=== PATIENT | male | born 1960 | race Caucasian/White ===

== ENCOUNTER 2020-12-26 02:31 | Inpatient (IN) | payer OTHER, SELFPAY ==
[2020-12-26] VITALS (77 sets, daily range): BP systolic 92–177; BP diastolic 70–116; PULSE 80–112; RESP 9–21; TEMP 36.7–36.8; O2SAT 94–100; BMI 31.6
--- NOTE | 2020-12-26 | ECHO_ITS ---
Patient Info Name: Hiro Mendoza Age: 60 years : 1960 Gender: Male Ht: 74 in Wt: 250 lbs BSA: 2.46 m2 HR: 101 bpm BP: 139 / 103 mmHg Heart Rhythm: Tachycardia Technical Quality: Good Exam Date: 12/26/2020 10:44 AM Exam Location: [facility] Patient Status: Inpatient Admit Date: 12/26/2020 Staff Ordering Physician: Gunner Veloz MD International Student Advisor: Anselmo Maher, LIONELCS, RT Attending Provider: Gunner Veloz MD Exam Type: CA echo doppler color flow Study Info Indications I21.02 - ST elevation (STEMI) myocardial infarction involving left anterior descending coronary artery Complete two-dimensional, color flow and Doppler transthoracic echocardiogram is performed with contrast to opacify the left ventricle and to improve the deliniation of the left ventricle endocardial borders. Strain analysis performed. Summary 1. Echo contrast was used. Normal LV size, mild LVH. LV dysfunction with segmental wall motion abnormality-severely hypokinetic to akinetic mid anterior wall, mid anterolateral, apical lateral and apical segments. LVEF about 50-55%. No definite thrombus is seen on images with echo contrast. Diastolic dysfunction is present. Valves are not well visualized, no significant MR. No significant aortic stenosis by Doppler. Unable to assess RVSP due to inadequate TR jet velocity. Small pericardial effusion, predominantly along RV valve, no echo findings suggestive of a definite tamponade. Left Ventricle Left ventricular chamber dimension is normal. Left ventricular systolic function is mildly reduced, estimated at 50-55%. There is mildly increased left ventricular wall thickness. E/e' 9.1 is abnormal. Right Ventricle Right ventricular chamber dimension is normal. Right ventricular systolic function is normal. Left Atria Left atrial chamber dimension is normal. Right Atria Right atrial chamber dimension is normal. Aortic Valve The aortic valve is not well visualized. There is no aortic valve stenosis. Pulmonic Valve The pulmonic valve is not well visualized. Mitral Valve The mitral valve has not well visualized. There is no mitral valve regurgitation. Tricuspid Valve The tricuspid valve leaflets are normal. There is mild tricuspid valve regurgitation. Pericardium/Pleural There is small pericardial effusion. Aorta The aortic root size at the sinus of Valsalva is mildly dilated. Left Ventricular Outflow Tract Name Value Normal LVOT 2D LVOT Diameter 2.0 cm LVOT Doppler LVOT Peak Gradient 4 mmHg LVOT Mean Gradient 2 mmHg LVOT VTI 17 cm LVOT VTI/AV VTI Ratio 0.8 LVOT Stroke Volume 54 ml LVOT CO 5.3 l/min LVOT CI 2.2 l/min/m2 Mitral Valve Name Value Normal MV Doppler
--- NOTE | ~2020-12-26 | XR_ITS ---
XR chest 1V portable DATE: 12/26/2020 02:57 INDICATION: Chest pain TECHNIQUE: Portable supine AP view on December 26, 2020 at 0259 hours COMPARISON: None FINDINGS: Heart size is within normal range. No pulmonary infiltrate or consolidation, pleural effusi on or pneumothorax is detected. Diffuse osteopenia. IMPRESSION: No active disease Reviewed, dictated and finalized at location A. MANAGER IMPRESSION: No active disease
--- NOTE | 2020-12-26 02:37 | ECG_ITS ---
Measurements Intervals [place] Rate: 98 P: 53 GA: 164 QRS: 1 QRSD: 81 T: 37 QT: 338 QTc: 433 Interpretive Statements SINUS RHYTHM POSSIBLE LEFT ATRIAL ENLARGEMENT SUBTLE ST ELEVATION IN ANTEROSEPTAL LEADS- CONSIDER ACUTE INJURY OR EARLY R REPOLARIZATION ABNORMALITY ABNORMAL ECG Electronically Signed On 12-26-2020 7:01:00 REGISTER CLERK by Taz Robins D.O.
--- NOTE | 2020-12-26 02:40 | ED.CHESTPAIN ---
HPI - Chest Pain General Chief Complaint: Chest Pain Stated Complaint: chest pain Time Seen by Provider: 12/26/20 02:37 History of Present Illness HPI narrative: Patient is a 60-year-old male who presents the ER with sudden onset chest pain beginning 30 minutes prior to arrival waking him from sleep. Central left-sided. Radiates down the arm. Associate with shortness of breath. No sweats or chills. Described as sharp pain. Does not go to his back. No change sensation. He does think it worsened with walking into the hospital. Has not had a heart attack previously. Related Data Home Medications Medication Instructions Recorded Confirmed No Home Medications 12/26/20 12/26/20 Allergies Allergy/AdvReac Type Severity Reaction Status Date / Time azithromycin AdvReac Vomiting Verified 12/26/20 02:41 Review of Systems Review of Systems: All systems reviewed & are unremarkable except as noted in HPI and below Constitutional: Constitutional: Denies chills, Denies fever(s) and Denies weakness ENT: Denies nasal congestion and Denies sore throat Cardiovascular: Cardiovascular: Reports chest pain, Denies rapid heart rate and Reports radiating jaw, neck or arm pain Respiratory: Respiratory: Denies chest congestion, Denies cough, Reports dyspnea and Denies wheezing Gastrointestinal: Gastrointestinal: Denies abdominal pain, Denies diarrhea, Denies nausea and Denies vomiting Musculoskeletal: Musculoskeletal: Denies back pain and Denies muscle cramps PMFSH Past Medical History Medical History (Updated 12/26/20 @ 06:22 by Zachariah Campos MD) Hyperlipidemia Surgical History Surgical History (Updated 12/26/20 @ 06:22 by Zachariah Campos MD) No history of previous surgery Family History Family History Father Hypertension Alzheimer's dementia Mother Hypertension Social History Social History (Updated 12/26/20 @ 06:22 by Zachariah Campos MD) Smoking status: Never smoker Exam Narrative: Exam Narrative: GENERAL: Anxious-appearing, well-nourished, and in moderate distress. HEAD: Normocephalic, atraumatic. EYES: PERRL and EOMI. CHEST: Clear to auscultation. No respiratory distress. HEART: Regular rate and rhythm. Normal peripheral pulses are equal. ABDOMEN: Soft, nontender, nondistended. EXTREMITIES: Normal range of motion. 1+ edema. SKIN: Warm, dry, no rash. NEURO: Alert and oriented x3. PSYCH: Normal mood and affect. Course Course Emergency Course: STEMI alert activated. I spoke with Dr. Veloz immediately after activation. Dr. Chowdhury has seen the EKG and feels there is some ST elevation in V1 but that V2 through V4 represents early repolarization abnormality and is not indicative of ischemia. Discussed some mild depressions in inferior leads. He feels this is likely related to patient's elevated blood pressures with a systolic in the 180s. Patient has been given nitroglycerin which causes blood pressure to drop to 92 systolic. He only had minor improvement of his pain. Repeat EKG is really unchanged. Dr. Veloz has also visualized this EKG. After reviewing the 2 EKGs and having this discussion STEMI was canceled at his request. He will accept the patient to his care and is planning on doing a cardiac catheterization at 7 AM. He would like the patient be on a heparin drip as well as a nitroglycerin drip. He would like the patient to receive oral aspirin and atorvastatin 80 mg. Patient has been made aware of this conversation and the treatment plan is verbalized understanding. We are titrating up the nitroglycerin and attempt to control his pain. He is also received IV morphine. First troponin level was negative. He has been accepted to the ICU by Dr. Alvarado. Vital Signs Vital signs: Vital Signs Temperature 98.2 F 12/26/20 02:34 Pulse Rate 100 12/26/20 02:34 Respiratory Rate 19 12/26/20 02:34 Blood Pressure 176/115 H
[2020-12-26] MEDS: ASPIRIN 81 MG CHEWABLE TABLET 324 MG PO (02:44)
--- NOTE | 2020-12-26 02:48 | PC.NURSE ---
0.4mg nitro given per EDP verbal order at 0240. Pt noted improvement to chest pain but started feeling lightheaded. BP dropped to 92/70. 1L NS started and other doses of nitro held at this time.
--- NOTE | 2020-12-26 02:49 | ECG_ITS ---
Measurements Intervals [place] Rate: 79 P: 42 PA: 154 QRS: 4 QRSD: 81 T: 14 QT: 372 QTc: 428 Interpretive Statements SINUS RHYTHM WITH SINUS ARRHYTHMIA SUBTLE ST ELEVATION IN ANTEROSEPTAL LEADS- CONSIDER ACUTE INJURY BASELINE WANDER- II, III, V4-V6 ABNORMAL ECG Electronically Signed On 12-26-2020 7:01:54 MOLD PRESS OPERATOR by Taz Robins D.O.
[2020-12-26 02:53] LABS: Basophils Absolute Auto 0.1 K/mm3 (0.0-0.1); Basophils Percent Auto 0.7 % (0.2-1.2); Eosinophils Absolute Auto 0.4 K/mm3 (0-0.3); Eosinophils Percent Auto 3.5 % (0-4.4); Hematocrit 49.7 % (42.0-52.0); Hemoglobin 16.6 g/dL (14.0-18.0); Immature Granulocyte Absolute 0.04 K/mm3 (0.00-0.031); Immature Granulocyte Percent A 0.3 % (0-0.5); Lymphocytes Absolute Auto 4.14 K/mm3 (0.9-3.2); Mean Corpuscular HGB Conc 33.4 g/dl (32-36); Mean Corpuscular Hemoglobin 29.7 pg (26-34); Mean Corpuscular Volume 89.1 fl (80-100); Mean Platelet Volume 10.1 fl (7.4-10.4); Monocytes Absolute Auto 1.3 K/mm3 (0.1-0.6); Monocytes Percent Auto 10.6 % (2.6-8.5); Neutrophils Absolute Auto 6.5 K/mm3 (1.3-6.7); Neutrophils Percent Auto 51.9 % (45.5-73.1); Platelet Count Result 321 k/mm3 (150-375); Red Blood Count 5.58 M/mm3 (4.6-6.20); Red Cell Distribution Width 13.1 % (11.5-14.5); White Blood Count 12.6 K/mm3 (4.5-10.0)
[2020-12-26] MEDS: MORPHINE SULFATE (*CRX) 2 MG/ML INJ IV PUSH (03:04)
[2020-12-26] MEDS: HEPARIN SODIUM 5,000 UNITS/ML VIAL 4000 UNITS IV PUSH (03:05)
[2020-12-26] MEDS: HEPARIN SOD/D5W 100 UNITS/ML 25,000 UNITS/250 ML BAG 10 UNITS IV CONT (03:22)
[2020-12-26 03:25] LABS: INR 0.9; Prothrombin Time 13.1 Seconds (11.1-14.7)
[2020-12-26] MEDS: MORPHINE SULFATE (*CRX) 4 MG/ML INJ IV PUSH (03:26)
[2020-12-26 03:28] LABS: Partial Thromboplastin Time 32.1 SECONDS (22.3-36.8)
[2020-12-26] MEDS: NITROGLYCERIN/D5W 200 MCG/ML 50 MG/250 ML BTL IV CONT (03:30)
[2020-12-26 03:38] LABS: Anion Gap 6 mmol/L (8-16); Blood Urea Nitrogen 13 mg/dL (9-20); Calcium 8.4 mg/dL (8.4-10.2); Carbon Dioxide 24 mmol/L (22-30); Chloride 107 mmol/L (98-107); Estimated CRCL calculation 93 ml/min; Estimated Glomerular Filt Rate > 60; Glucose 129 mg/dL (75-110); Potassium 3.3 mmol/L (3.4-5.0); Sodium 137 mmol/L (137-145)
[2020-12-26] MEDS: ATORVASTATIN 40 MG TABLET 80 MG PO ×2 (03:38→11:09)
[2020-12-26 03:50] LABS: Troponin I < 0.012 ng/mL (0.000-0.034)
--- NOTE | 2020-12-26 04:27 | PC.NURSE ---
verbal order by erp dr lake to increase nitro drip to 10mcg/hr.
--- NOTE | 2020-12-26 04:28 | PC.NURSE ---
nitro increased to 10mcg/hr rn double check Luna Patten, RN
[2020-12-26 06:35] LABS: Troponin I 0.053 ng/mL (0.000-0.034)
--- NOTE | 2020-12-26 06:50 | ADMGEN ---
This patient, Hiro Mendoza, was admitted to Intensive Care Unit-5 at 0540 from the Emergency Department. Patient/family oriented to hospital policies and general routines including ID bracelet, bed and alarms, visiting hours, pain management, procedures, bathroom and other care routines, personal items, smoking policy, room service/diet, and visiting hours. Information on how to activate the Rapid Response Team has been discussed. Patient/Family are encouraged to report perceived risks to care and to ask questions if they do not understand what they are told or what they should do.
--- NOTE | 2020-12-26 08:13 | WPDMODSED ---
Moderate Sedation Note-Pt Data Patient Data Allergies Allergy/AdvReac Type Severity Reaction Status Date / Time azithromycin AdvReac Vomiting Verified 12/26/20 02:41 Home Medications Medication Instructions Recorded Confirmed Type No Home Medications 12/26/20 12/26/20 History Current Medications: Active Medications Heparin Sodium (Porcine) (Heparin Sodium 5,000 Units/Ml Vial) 4,000 units IV PUSH PRN PRN PRN Reason: aPTT less than 55 seconds Heparin Sodium (Porcine) (Heparin Sodium 5,000 Units/Ml Vial) 3,500 units IV PUSH PRN PRN PRN Reason: aPTT 55 - 70 seconds Heparin Sodium/Dextrose (Heparin Sodium/D5w 100 Units/Ml) 25,000 units in 250 mls @ 0 mls/hr IV CONT .Q0M BEVERLY; Protocol Last Titration: 12/26/20 07:58 Dose: 0 units/hr, 0 mls/hr Documented by: Acetaminophen (Ofirmev 1,000 Mg Ivpb) 1,000 mg in 100 mls @ 400 mls/hr IVPB Q6H PRN PRN Reason: Mild Pain (1-3) or Fever Stop: 12/27/20 04:14 Morphine Sulfate (Morphine Sulfate (*Crx) 4 Mg/Ml Inj) 4 mg IV PUSH Q2H PRN PRN Reason: Pain Rated 7-10 Promethazine HCl (Promethazine Hcl 25 Mg/Ml Ampul) 12.5 mg IV PUSH Q6H PRN PRN Reason: Nausea Sedation/Anesthesia: No previous sedation/anesthesia problems (including family history). PMFSH Past Medical History Medical History (Updated 12/26/20 @ 06:22 by Zachariah Campos MD) Hyperlipidemia Surgical History Surgical History (Updated 12/26/20 @ 06:22 by Zachariah Campos MD) No history of previous surgery Family History Family History Father Hypertension Alzheimer's dementia Mother Hypertension Social History Social History (Updated 12/26/20 @ 06:22 by Zachariah Campos MD) Smoking status: Never smoker Second hand tobacco smoke exposure: No Alcohol intake: never Substance use: never Substance use type: does not use Gender identity (if verbalized by the patient): Male Spiritual care concerns: No Mod Sed Physical Exam Physical Exam Pre Procedural Exam: Normal: Airway Hours since solid foods: 10 Hours since liquid intake: 10 Internal Medicine - PN: Obj Da Vital Signs Vital Signs: Vital Signs - 24 hr 12/26/20 02:34 12/26/20 02:46 12/26/20 02:47 Temperature 36.8 C Pulse Rate 100 81 80 Respiratory Rate 19 18 17 Blood Pressure 176/115 H 92/70 L 92/70 L Pulse Oximetry 100 99 100 12/26/20 02:50 12/26/20 02:51 12/26/20 02:56 Temperature Pulse Rate 87 88 91 Respiratory Rate 13 16 14 Blood Pressure 119/89 119/89 137/92 H Pulse Oximetry 98 100 100 12/26/20 03:01 12/26/20 03:02 12/26/20 03:03 Temperature Pulse Rate 93 95 93 Respiratory Rate 16 20 Blood Pressure 134/94 H 134/94 H 144/101 H Pulse Oximetry 100 100 100 12/26/20 03:04 12/26/20 03:06 12/26/20 03:11 Temperature Pulse Rate 92 91 91 Respiratory Rate 11 L 14 14 Blood Pressure 144/101 H 144/98 H 144/95 H Pulse Oximetry 100 100 100 12/26/20 03:16 12/26/20 03:21 12/26/20 03:25 Temperature Pulse Rate 91 93 90 Respiratory Rate 15 14 11 L Blood Pressure 150/103 H 144/105 H 144/98 H Pulse Oximetry 100 100 12/26/20 03:26 12/26/20 03:30 12/26/20 03:31 Temperature Pulse Rate 87 84 85 Respiratory Rate 10 L 11 L Blood Pressure 130/92 H 130/92 H 129/97 H Pulse Oximetry 100 100 12/26/20 03:36 12/26/20 03:41 12/26/20 03:45 Temperature Pulse Rate 86 91 97 Respiratory Rate 13 14 13 Blood Pressure 138/102 H 142/107 H Pulse Oximetry 100 100 100 12/26/20 03:46 12/26/20 03:51 12/26/20 03:56 Temperature Pulse Rate 94 93 93 Respiratory Rate 14 13 14 Blood Pressure 145/113 H 141/107 H 142/104 H Pulse Oximetry 100 100 100 12/26/20 04:00 12/26/20 04:01 12/26/20 04:06 Temperature Pulse Rate 91 92 92 Respiratory Rate 10 L 11 L 11 L Blood Pressure 147/108 H 154/99 H Pulse Oximetry 100 100 100 12/26/20 04:11 12/26/20 04:15 12/26/20 04:16 Temperature Pulse Rate 91 91 93 Respirator
--- NOTE | 2020-12-26 08:13 | PM.IMHP ---
H&P: HPI History of Present Illness Date/Time: 12/26/20 08:13 Chief Complaint: Chest pain Narrative: Date of service: 12/26/2020 chief complaint: Chest pain HPI: Hiro Mendoza is a 60 year old male with no known prior cardiac history. Patient was brought to [facility] emergency room last night by his . Patient states that he woke up with chest discomfort with radiation to left shoulder and arm associated with shortness of breath, dizziness. He denied palpitations, syncope. His initial EKG in the ER at 2:35 a.m. showed sinus rhythm, somewhat isolated ST elevation in lead V1. Subsequent EKG at 2:48 a.m. did not show any significant evolving changes . Patient's blood pressure was elevated upon arrival at 176/115 mmHg. Patient received sublingual nitroglycerin in the ER with improvement in the chest pain . He was given aspirin, and was initiated on anticoagulation with heparin. First set of troponin was negative, 2nd set is minimally elevated at 0.053. Overnight, patient reported improvement in the chest, however, he continued to have mild residual discomfort. Patient's coronary angiogram showed 100% occlusion of the mid LAD; about 30-50% stenosis distal RCA; LVEF about 50-55% with apical dyskinesis. He underwent successful PCI/ SHAYY x1 mid LAD with sabianist of VIPIN 3 flow. Patient's chest pain significantly improved after PCI. Review of Systems Review of Systems: Narrative: General: Negative for fever, chills, fatigue Psychological: Negative for anxiety, depression Ophthalmic: negative for loss of vision ENT: Negative for epistaxis, headaches Allergy and immunology: Negative for hives, nasal congestion Hematologic and lymphatic: Negative for overt bleeding problems Endocrine: Negative for hot flashes, palpitations Respiratory: Negative for cough, hemoptysis Cardiovascular: Positive for chest pain, shortness of breath, dizziness, no syncope Gastrointestinal: Negative for abdominal pain, nausea, vomiting, hematochezia Musculoskeletal: Negative for myalgia, joint pains Neurological: Negative for weakness Dermatological: Negative for rash, skin discoloration PMF Past Medical History Medical History (Updated 12/26/20 @ 09:23 by Morena Alvarado MD) Cataract Cataract Hyperlipidemia Family History Family History Father Hypertension Alzheimer's dementia Mother Hypertension Social History Social History Smoking status: Never smoker Second hand tobacco smoke exposure: No Alcohol intake: never Substance use: never Substance use type: does not use Gender identity (if verbalized by the patient): Male Spiritual care concerns: No Meds Home Medications and Allergies Home Medications Medication Instructions Recorded Confirmed Type No Home Medications 12/26/20 12/26/20 History Allergies Allergy/AdvReac Type Severity Reaction Status Date / Time azithromycin AdvReac Vomiting Verified 12/26/20 02:41 Vital Signs Vital Signs - 24 hr 12/26/20 02:34 12/26/20 02:46 12/26/20 02:47 Temperature 36.8 C Pulse Rate 100 81 80 Respiratory Rate 19 18 17 Blood Pressure 176/115 H 92/70 L 92/70 L Pulse Oximetry 100 99 100 12/26/20 02:50 12/26/20 02:51 12/26/20 02:56 Temperature Pulse Rate 87 88 91 Respiratory Rate 13 16 14 Blood Pressure 119/89 119/89 137/92 H Pulse Oximetry 98 100 100 12/26/20 03:01 12/26/20 03:02 12/26/20 03:03 Temperature Pulse Rate 93 95 93 Respiratory Rate 16 20 Blood Pressure 134/94 H 134/94 H 144/101 H Pulse Oximetry 100 100 100 12/26/20 03:04 12/26/20 03:06 12/26/20 03:11 Temperature Pulse Rate 92 91 91 Respiratory Rate 11 L 14 14 Blood Pressure 144/101 H 144/98 H 144/95 H Pulse Oximetry 100 100 100 12/26/20 03:16 12/26/20 03:21 12/26/20 03:25 Temperature Pulse Rate 91 93 90 Respira
--- NOTE | 2020-12-26 09:19 | WPDCNINT ---
Assessment and Plan Assessment and plan (1) NSTEMI (non-ST elevated myocardial infarction): Code(s): I21.4 - Non-ST elevation (NSTEMI) myocardial infarction Status: Acute Assessment and Plan: Patient presented with chest pain, slight ST elevation in leads V1 -status post cardiac on 12/26/2020: Was found to have a 100% occlusion in the mid segment of the LAD. Mild plaque mid RCA, 30-50% stenosis distal RCA. Status post PCI balloon angioplasty and stenting of the totally occluded mid LAD using SHAYY x1. EF was 50-55% with dyskinetic apical segment. -patient has been started on do antiplatelet therapy with aspirin and Brilinta, started on beta-reyna and ARB with high-dose statin -cardiology following the patient closely (2) Hyperlipidemia: Code(s): E78.5 - Hyperlipidemia, unspecified Status: Acute Assessment and Plan: Continue high-dose statin therapy Additional Plan Discussed with patient and updated with his condition and plan of care. Code status: Full code Critical care time spent: 41 minutes Due to a high probability of clinically significant, life threatening deterioration, the patient required my highest level of preparedness to intervene emergently and I personally spent this critical care time directly and personally managing the patient. This critical care time included obtaining a history; examining the patient; pulse oximetry; ordering and review of studies; arranging urgent treatment with development of a management plan; evaluation of patient's response to treatment; frequent reassessment; and discussions with other providers. It was exclusive of separately billable procedures and treating other patients and teaching time. Please see Assessment and Plan section and the rest of the note for further information on patient assessment and treatment [employer]er Consult Note Consult date: 12/26/20 Time Seen: 06:55 Reason for consult: Chest pain, NSTEMI HPI: Hiro Mendoza is a 60 year old male past medical history hyperlipidemia, no known prior cardiac history presented the ED overnight with chest discomfort which woke him up from sleep, stated that it radiated to the left shoulder and left arm, chest pain was associated with shortness of breath, dizziness. Denied any palpitation, syncope. EKG in the ER showed sinus rhythm with somewhat isolated ST-elevation and V1. Subsequent EKG did not show any significant evolving changes. Patient was hypertensive with systolic blood pressures of 176/115 minute patient received sublingual nitroglycerin with improvement chest pain. Given aspirin and started on heparin infusion. First set of troponin was negative and a 2nd set was minimally elevated at 0.053. Patient started nitroglycerin infusion transferred to the ICU for further management. Patient also received morphine for his chest pain. Patient seen examined this morning, continue to have chest pain is being taken for cardiac catheterization. Complains of mild shortness of breath, hemodynamically stable. Review of Systems Review of Systems: All systems reviewed & are unremarkable except as noted in HPI and below [facility] Past Medical History Medical History (Updated 12/26/20 @ 09:23 by Morena Alvarado MD) Cataract Cataract Hyperlipidemia Family History Family History Father Hypertension Alzheimer's dementia Mother Hypertension Social History Social History Smoking status: Never smoker Second hand tobacco smoke exposure: No Alcohol intake: never Substance use: never Substance use type: does not use Gender identity (if verbalized by the patient): Male Spiritual care concerns: No Meds Home Medications and Allergies Home Medications Medication Instructions Recorded Confirmed Type No Home Medications 12/26/20 12/26/20 History Allergies All
--- NOTE | 2020-12-26 09:30 | WPDCARDPROC ---
Cardiac Cath Procedure Note Date of procedure:: 12/26/20 Performing physician:: Gunner Veloz MD Procedure Procedure note:: URGENT CARDIAC CATHETERIZATION AND PERCUTANEOUS CORONARY INTERVENTION REPORT DATE OF PROCEDURE: 12/26/2020 INDICATION FOR PROCEDURE: Acute coronary syndrome BRIEF CLINICAL HISTORY: 60 year old male with no known prior cardiac history. Patient was brought to [facility] emergency room last night by his . Patient states that he woke up with chest discomfort with radiation to left shoulder and arm associated with shortness of breath, dizziness. His initial EKG in the ER at 2:35 a.m. showed sinus rhythm, somewhat isolated ST elevation in lead V1. Subsequent EKG at 2:48 a.m. did not show any significant evolving changes. Patient's blood pressure was elevated upon arrival at 176/115 mmHg. Patient received sublingual nitroglycerin in the ER with improvement in the chest pain . He was given aspirin, and was initiated on anticoagulation with heparin. First set of troponin was negative, 2nd set is minimally elevated at 0.053. Patient had improvement in the chest after admission, however, he continued to have mild residual discomfort. Patient was urgently brought to the dye lab technician for cardiac catheterization. Benefits and risks of the procedure were discussed with the patient in depth, and informed consent was obtained prior to the procedure. Risks of the procedure include but are not limited to vascular complications including groin hematoma, retroperitoneal bleed, vessel perforation; periprocedural AK, cardiac arrhythmias, stroke, contrast induced nephropathy, and . After discussing all the benefits, risks and alternatives, patient was willing to proceed with the procedure. PROCEDURES PERFORMED: 1. Left heart catheterization- Selective left and right coronary angiogram; left ventriculogram and hemodynamic assessment 2. Percutaneous coronary intervention- Balloon angioplasty and stenting of totally occluded mid LAD using a 3.0 x 28 mm everolimus eluting stent with presybeterian of VIPIN 3 flow. 3. Selective right common femoral angiogram and deployment of Angio-Seal hemostatic device 4. Moderate sedation-CPT code 26839 MODERATE SEDATION: Midazolam 1 mg; fentanyl 25 mcg. Start time 0827 , Stop time 0919 ; Total [id number] time 52 minutes; Lu Montenegro RN was trained observer for moderate sedation. ACCESS SITE: Right common femoral artery PROCEDURE NOTE: After obtaining informed consent, patient was urgently brought to catheterization lab and prepped and draped in a usual sterile manner. After local anesthesia with lidocaine, right common femoral artery access was taken with micropuncture needle followed by insertion of a 6 Estonian sheath. Selective left and right coronary angiogram was performed using 6 Estonian 3.5 CLS guide catheter and JR4 catheters respectively. Orthogonal views were taken. After completion of PCI, a 5 Estonian pigtail catheter was advanced in the LV cavity and was flushed with normal saline. LV pressure measurement was performed. After this, left ventriculogram was performed. The catheter was flushed again, and gradient across the aortic valve was measured on the pullback of the catheter. Selective right common femoral angiogram was performed after PCI followed by successful deployment of Angio-Seal vascular closure device. Patient tolerated procedure well without any immediate procedure related complications. FINDINGS: LEFT MAIN CORONARY: the left main coronary artery is a medium caliber vessel with minimal narrowing in the mid segment. The vessel trifurcates into LAD, ramus intermedius and left circumflex branches. LEFT ANTERIOR DESCENDING ARTERY: The LAD is a medium caliber vessel with minor irregularities in the proximal segment. There is 100% occlusion in the mid segment with VIPIN 0 flow prior to the intervention. After intervention, the vessel tapers gradually and becomes s
[2020-12-26] MEDS: SODIUM CHLORIDE 0.9% IV 1,000 ML 125 ML IV CONT (10:13)
[2020-12-26 10:23] LABS: Cholesterol 234 mg/dL (0-200); HDL Direct 35 mg/dL; Triglycerides 167 mg/dL (<150)
[2020-12-26 10:35] LABS: LDL Cholesterol Direct 193 mg/dL; Partial Thromboplastin Time 66.3 SECONDS (22.3-36.8)
[2020-12-26] MEDS: TICAGRELOR 90 MG TABLET 180 MG PO (11:08)
[2020-12-26] MEDS: LOSARTAN POTASSIUM 25 MG TABLET PO (11:08)
[2020-12-26] MEDS: POTASSIUM CHLORIDE 20 MEQ TABLET 40 MEQ PO (11:08)
[2020-12-26] MEDS: PERFLUTREN LIPID MICROSPHERES 1.5 ML VIAL DILUTED TO 10 ML TOTAL VOLUME IV PUSH (11:54)
[2020-12-26] MEDS: ONDANSETRON INJ 4 MG/2 ML VIAL IV PUSH ×2 (12:03→18:25)
[2020-12-26] MEDS: SPIRONOLACTONE 25 MG TABLET PO (18:45)
[2020-12-26] MEDS: METOPROLOL TARTRATE 50 MG TAB PO (20:39)
[2020-12-26] MEDS: TICAGRELOR 90 MG TABLET PO (21:01)
[2020-12-26] MEDS: PROMETHAZINE HCL 25 MG/ML AMPUL 12.5 MG IV PUSH (23:51)
[2020-12-27] VITALS (16 sets, daily range): BP systolic 107–144; BP diastolic 76–97; PULSE 72–108; RESP 11–22; TEMP 36.6–37.1; O2SAT 97–99
--- NOTE | 2020-12-27 | ECHOL_ITS ---
Patient Info Name: Hiro Mendoza Age: 60 years : 1960 Gender: Male Ht: 74 in Wt: 247 lbs BSA: 2.45 m2 HR: 80 bpm BP: 117 / 86 mmHg Heart Rhythm: Sinus Rhythm Technical Quality: Fair Exam Date: 12/27/2020 10:49 AM Exam Location: [facility] Pulmonary Patient Status: Inpatient Admit Date: 12/26/2020 Staff Ordering Physician: Morena Alvarado MD Manager Assessment: Jeremy Elias RDCS Attending Provider: Gunner Veloz MD Referring Physician: Christiano ARBOLEDA; Exam Type: CA echo limited Study Info Indications I31.3 - Pericardial effusion (noninflammatory) Complete two-dimensional, color flow and Doppler transthoracic echocardiogram is performed. Summary 1. Complete two-dimensional, color flow and Doppler transthoracic echocardiogram is performed. 2. Limited study with limited views. 3. Left ventricular systolic function is mildly reduced, estimated at 45-50%. 4. Severe hypokinesis of the apex, apical anterior, mid anterior, apical septal mancilla. 5. Unable to estimate PA systolic pressure due to poor spectral resolution of tricuspid regurgitant jet velocity. 6. There is small pericardial effusion with fibrinous material within the pericardial space. No evidence of hemodynamically significant tamponade physiology by tricuspid valve or mitral valve inflow velocities. Left Ventricle Left ventricular chamber dimension is normal. Left ventricular systolic function is mildly reduced, estimated at 45-50%. There is mildly increased left ventricular wall thickness. Severe hypokinesis of the apex, apical anterior, mid anterior, apical septal [place]. Limited study with limited views. Tricuspid Valve The tricuspid valve leaflets are not well visualized. There is trace tricuspid valve regurgitation. Unable to estimate PA systolic pressure due to poor spectral resolution of tricuspid regurgitant jet velocity. Pericardium/Pleural The pericardium appears normal. There is small pericardial effusion with fibrinous material within the pericardial space. No evidence of hemodynamically significant tamponade physiology by tricuspid valve or mitral valve inflow velocities. Report Signatures
[2020-12-27 04:09] LABS: Basophils Percent Auto 0.2 % (0.2-1.2); Eosinophils Absolute Auto 0.1 K/mm3 (0-0.3); Eosinophils Percent Auto 0.4 % (0-4.4); Hematocrit 46.9 % (42.0-52.0); Hemoglobin 16.2 g/dL (14.0-18.0); Immature Granulocyte Absolute 0.05 K/mm3 (0.00-0.031); Immature Granulocyte Percent A 0.3 % (0-0.5); Lymphocytes Absolute Auto 0.86 K/mm3 (0.9-3.2); Lymphocytes Percent Auto 5.8 % (18.3-44.2); Mean Corpuscular HGB Conc 34.5 g/dl (32-36); Mean Corpuscular Hemoglobin 30.5 pg (26-34); Mean Corpuscular Volume 88.2 fl (80-100); Mean Platelet Volume 10.1 fl (7.4-10.4); Monocytes Absolute Auto 1.4 K/mm3 (0.1-0.6); Monocytes Percent Auto 9.6 % (2.6-8.5); Neutrophils Absolute Auto 12.4 K/mm3 (1.3-6.7); Neutrophils Percent Auto 83.7 % (45.5-73.1); Platelet Count Result 299 k/mm3 (150-375); Red Blood Count 5.32 M/mm3 (4.6-6.20); Red Cell Distribution Width 13.2 % (11.5-14.5); White Blood Count 14.9 K/mm3 (4.5-10.0)
[2020-12-27 04:29] LABS: Anion Gap 2 mmol/L (8-16); Blood Urea Nitrogen 9 mg/dL (9-20); Calcium 8.6 mg/dL (8.4-10.2); Carbon Dioxide 27 mmol/L (22-30); Chloride 105 mmol/L (98-107); Estimated CRCL calculation 104 ml/min; Estimated Glomerular Filt Rate > 60; Glucose 123 mg/dL (75-110); Magnesium 2.1 mg/dL (1.6-2.3); Phosphorus 3.5 mg/dL (2.5-4.5); Sodium 134 mmol/L (137-145)
--- NOTE | 2020-12-27 07:57 | WPDINTPN ---
Progress Note: A&P Assessment and Plan (1) NSTEMI (non-ST elevated myocardial infarction): Code(s): I21.4 - Non-ST elevation (NSTEMI) myocardial infarction Status: Acute Assessment and Plan: Patient presented with chest pain, slight ST elevation in leads V1 -status post cardiac on 12/26/2020: Was found to have a 100% occlusion in the mid segment of the LAD. Mild plaque mid RCA, 30-50% stenosis distal RCA. Status post PCI balloon angioplasty and stenting of the totally occluded mid LAD using SHAYY x1. EF was 50-55% with dyskinetic apical segment. -cardiology following the patient closely -echocardiogram on 12/26/2020: Showed an EF of 50-55% severely hypokinetic to akinetic mid anterior wall, mid anterolateral, apical lateral and apical segments. No definite thrombus is seen on images with echo contrast. Diastolic dysfunction is present. No significant aortic stenosis by Doppler, small pericardial effusion predominantly along the RV wall, no echo finding suggestive of tamponade -continue aspirin, Brilinta, metoprolol, losartan, spironolactone, atorvastatin (2) Hyperlipidemia: Code(s): E78.5 - Hyperlipidemia, unspecified Status: Acute Assessment and Plan: Continue high-dose statin therapy Additional Plan Discussed with patient and updated with his condition and plan of care. Code status: Full code Critical care time spent: 33 minutes Due to a high probability of clinically significant, life threatening deterioration, the patient required my highest level of preparedness to intervene emergently and I personally spent this critical care time directly and personally managing the patient. This critical care time included obtaining a history; examining the patient; pulse oximetry; ordering and review of studies; arranging urgent treatment with development of a management plan; evaluation of patient's response to treatment; frequent reassessment; and discussions with other providers. It was exclusive of separately billable procedures and treating other patients and teaching time. Please see Assessment and Plan section and the rest of the note for further information on patient assessment and treatment Subjective Date/time seen: 12/27/20 07:57 Interval history: Chest pain, NSTEMI status post cardiac catheterization stent x1 to mid LAD 12/27/2020: Patient seen examined, states he had some nausea last night and was given Phenergan which helped him with the nausea also helped him sleep. Patient is hemodynamically stable, urine output has denies any chest pain, shortness of breath abdominal pain. Overnight some reperfusion beats were noted on the telemetry. Review of Systems Review of Systems: All systems reviewed & are unremarkable except as noted in HPI and below Exam Const: General: comfortable and no acute distress HENMT: Mouth: Yes moist mucous membranes Eyes: Sclera: sclerae normal Pupils: Equal, round and reactive pupils present Neck: Neck: supple Resp: Effort & Inspection: normal respiratory effort Auscultation: clear to auscultation bilaterally Cardio: Rate: regular rate Rhythm: regular rhythm GI: Inspection: non-distended GI Palp: Yes Soft to palpation and No Tenderness to palpation present (GI) Auscultation: normal bowel sounds : Other: Deferred Skin: General skin exam: normal color and no rashes or lesions noted Neuro: Cranial nerves: Yes Equal, round and reactive pupils present Other: Patient is awake, alert, oriented, nonfocal Extrem: General: normal to inspection, no edema and no pedal edema Other: Right groin site without any evidence of hematoma or ecchymosis Psych: Mental Status: mental status grossly normal Affect: normal affect Objective Data Vital Signs Vital Signs: Vital Signs - 24 hr 12/26/20 08:00 12/26/20 09:51 12/26/20 10:00 Temperature Pulse Rate 91 108 H 103 H Respiratory Rate 20 Blood Pressure 139/103 H 156/105 H Pulse Oximetry 9
[2020-12-27] MEDS: TICAGRELOR 90 MG TABLET PO ×2 (08:05→20:14)
[2020-12-27] MEDS: LOSARTAN POTASSIUM 25 MG TABLET PO (08:06)
[2020-12-27] MEDS: SPIRONOLACTONE 25 MG TABLET PO (08:06)
[2020-12-27] MEDS: ATORVASTATIN 40 MG TABLET 80 MG PO (08:06)
[2020-12-27] MEDS: ASPIRIN 81 MG ENTERIC TABLET PO (08:06)
[2020-12-27] MEDS: METOPROLOL TARTRATE 50 MG TAB PO ×2 (08:06→20:14)
--- NOTE | 2020-12-27 09:11 | PM.PNCARD ---
Progress Note: A&P Additional Plan 60-year-old man with: Coronary artery disease presenting with acute anterior infarction undergoing successful PCI to the mid LAD. Stable this morning. Will move out of the ICU advanced his losartan dosage and consider discharge tomorrow if no problems arise. Rashid Oseguera MD 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 Patient was successfully treated with PCI including PTCA and drug-eluting stent to the target lesion with good angiographic result. He is in the ICU overnight is asymptomatic this morning and feels well. Vital signs stable, systolic and diastolic blood pressure are moderately elevated. Troponin rise to just under 20 Exam Const: General: comfortable and no acute distress HENMT: Mouth: Yes moist mucous membranes Eyes: Sclera: sclerae normal Pupils: Equal, round and reactive pupils present Neck: Neck: supple and no JVD Resp: Effort & Inspection: normal respiratory effort Auscultation: clear to auscultation bilaterally Cardio: Rate: regular rate Rhythm: regular rhythm GI: GI Palp: Yes Soft to palpation Auscultation: normal bowel sounds Skin: General skin exam: normal color Neuro: Cognition (Neuro): normal cognition Extrem: General: normal to inspection Objective Data Vital Signs Vital Signs: Vital Signs - 24 hr 12/26/20 09:51 12/26/20 10:00 12/26/20 10:06 Temperature Pulse Rate 108 H 103 H 103 H Respiratory Rate Blood Pressure 156/105 H 154/103 H Pulse Oximetry 98 99 12/26/20 10:21 12/26/20 10:30 12/26/20 10:36 Temperature Pulse Rate 101 H 101 H 101 H Respiratory Rate Blood Pressure 140/116 H 143/115 H 143/115 H Pulse Oximetry 99 97 100 12/26/20 10:45 12/26/20 10:51 12/26/20 11:21 Temperature Pulse Rate 100 103 H 105 H Respiratory Rate Blood Pressure 148/105 H 177/111 H 145/112 H Pulse Oximetry 99 100 99 12/26/20 11:51 12/26/20 12:00 12/26/20 12:51 Temperature Pulse Rate 102 H 102 H 102 H Respiratory Rate 20 Blood Pressure 147/109 H 145/101 H Pulse Oximetry 98 98 98 12/26/20 13:00 12/26/20 14:00 12/26/20 15:00 Temperature 36.8 C 36.8 C Pulse Rate 103 H 103 H 105 H Respiratory Rate 20 20 Blood Pressure 144/113 H 139/106 H 144/107 H Pulse Oximetry 100 98 98 12/26/20 15:15 12/26/20 15:30 12/26/20 16:00 Temperature 36.8 C Pulse Rate 106 H Respiratory Rate 17 Blood Pressure 131/100 H 149/95 H 135/106 H Pulse Oximetry 98 12/26/20 17:00 12/26/20 18:00 12/26/20 20:00 Temperature 36.7 C Pulse Rate 105 H 110 H 111 H Respiratory Rate 20 18 21 H Blood Pressure 153/103 H 147/108 H 150/116 H Pulse Oximetry 98 99 98 12/26/20 20:39 12/26/20 20:54 12/26/20 22:00 Temperature Pulse Rate 106 H 106 H 87 Respiratory Rate 18 20 Blood Pressure 135/102 H Pulse Oximetry 99 97 12/26/20 23:55 12/27/20 00:00 12/27/20 02:00 Temperature 36.9 C Pulse Rate 94 91 90 Respiratory Rate 18 16 18 Blood Pressure 135/97 H 131/88 Pulse Oximetry 97 98 98 12/27/20 03:39 12/27/20 04:00 12/27/20 06:00 Temperature 37.0 C Pulse Rate 87 88 88 Respiratory Rate 14 16 19 Blood Pressure 139/92 H 144/95 H Pulse Oximetry 98 99 97 12/27/20 08:00 12/27/20 08:06 Temperature 37.1 C Pulse Rate 91 93 Respiratory Rate 18 Blood Pressure 132/93 H Pulse Oximetry 98 Intake/Output Intake/Output: Intake & Output 12/24/20 12/25/20 12/26/20 12/27/20 23:59 23:59 23:59 23:59 Intake Total 2297 Output Total 3750 800 Balance -1453 -800 Meds/Results Medications: Active Medications Generic Name Dose Route Start Last Admin Trade Name Freq PRN Reason Stop Dose Admin Aspirin 81 mg 12/26/20 10:30 12/27/20 08:06 Aspirin 81 Mg Enteric Tablet [facility] [place] [facility]
[2020-12-28] VITALS (18 sets, daily range): BP systolic 78–114; BP diastolic 65–85; PULSE 78–109; RESP 14–25; TEMP 36.5–36.9; O2SAT 95–99
--- NOTE | 2020-12-28 | ECHOL_ITS ---
Patient Info Name: Hiro Mendoza Age: 60 years : 1960 Gender: Male Ht: 72 in Wt: 240 lbs BSA: 2.38 m2 HR: 96 bpm BP: 78 / 65 mmHg Heart Rhythm: Sinus Rhythm Technical Quality: Fair Exam Date: 12/28/2020 2:51 PM Exam Location: [facility] Patient Status: Inpatient Admit Date: 12/26/2020 Staff Ordering Physician: Emeka June MD Speaking Unit Assembler: Sondra Beatty RDCS Attending Provider: Gunner Veloz MD Referring Physician: Shaylee DUDLEY; Exam Type: CA echo limited Study Info Indications I31.3 - Pericardial effusion (noninflammatory) Limited two-dimensional transthoracic echocardiogram is performed. Summary 1. Left ventricular systolic function is normal, estimated at 55%. Regional wall motion assessment limited due to poor endomyocardial border definition in several views. 2. There is mildly increased left ventricular wall thickness. 3. Limited study with limited views. 4. Small pericardial effusion 0.9-1.2 cm predominantly in an anterior location. Organized fibrinous material within the pericardial space. 5. No echocardiographic evidence for tamponade physiology or mitral and tricuspid inflow velocity variation. Variations respectively less than 25% which does not meet criteria for tamponade physiology. No evidence of right atrial invagination. 6. Normal inferior vena cava with >50% collapse upon inspiration consistent with normal right atrial pressure, 5 mmHg. Left Ventricle Left ventricular chamber dimension is normal. Left ventricular systolic function is normal, estimated at 55%. Regional wall motion assessment limited due to poor endomyocardial border definition in several views. There is mildly increased left ventricular wall thickness. Limited study with limited views. Right Ventricle Right ventricular chamber dimension is normal. Right ventricular systolic function is normal. Pericardium/Pleural Small pericardial effusion 0.9-1.2 cm predominantly in an anterior location. Organized fibrinous material within the pericardial space. No echocardiographic evidence for tamponade physiology or mitral and tricuspid inflow velocity variation. Variations respectively less than 25% which does not meet criteria for tamponade physiology. No evidence of right atrial invagination. Inferior Vena Cava Normal inferior vena cava with >50% collapse upon inspiration consistent with normal right atrial pressure, 5 mmHg. Tricuspid Valve Name Value Normal Estimated PAP/RSVP RA Pressure 5 mmHg <=5 Report Signatures
[2020-12-28] MEDS: ASPIRIN 81 MG ENTERIC TABLET PO (07:48)
[2020-12-28] MEDS: ATORVASTATIN 40 MG TABLET 80 MG PO (07:48)
[2020-12-28] MEDS: LOSARTAN POTASSIUM 50 MG TABLET PO (07:49)
[2020-12-28] MEDS: SPIRONOLACTONE 25 MG TABLET PO (07:50)
[2020-12-28] MEDS: TICAGRELOR 90 MG TABLET PO ×2 (07:50→21:13)
[2020-12-28] MEDS: METOPROLOL TARTRATE 50 MG TAB PO ×2 (07:52→21:13)
--- NOTE | 2020-12-28 11:56 | PC.NURSE ---
1152- SPOKE WITH DR. BAEZ ABOUT PT FEELING LIGHT HEADED AND DIZZY WHEN GETTING UP TO CHAIR. HE STATED TO DO ORTHOSTATIC BLOOD PRESSURES AND ORDER FOR PT/OT TO SEE PT.
[2020-12-28] MEDS: SODIUM CHLORIDE 0.9% IV 250 ML 999 ML (12:48)
--- NOTE | 2020-12-28 12:52 | PM.PNCARD ---
Progress Note: A&P Assessment and Plan (1) NSTEMI (non-ST elevated myocardial infarction): Code(s): I21.4 - Non-ST elevation (NSTEMI) myocardial infarction Status: Acute Assessment and Plan: Patient's coronary angiogram showed 100% occlusion of the mid LAD; about 30-50% stenosis distal RCA; LVEF about 50-55% with apical dyskinesis. He underwent successful PCI/ SHAYY x1 mid LAD with hoahaoism of VIPIN 3 flow. Patient's chest pain significantly improved after PCI. Continue dual antiplatelet therapy, beta-reyna, ARB. Given hypotension will reduce dose and/or hold depending upon BP in a.m., discontinue spironolactone for now. (2) Hypotension: Code(s): I95.9 - Hypotension, unspecified Status: Acute Assessment and Plan: Progressive relative hypotension with positive orthostasis with systolic blood pressure dropping to 78mmHg with standing, 98mmHg sitting. Will give IV fluid bolus, monitor BP intolerance. Repeat limited 2D echocardiogram and with hemodynamics to assess for evidence of tamponade physiology. Although this would be unlikely his clinical scenario raises concern so I will monitor closely in this regard and repeat limited echo for clarification. As a result of these changes patient is not stable for discharge until this potentially dangerous circumstance has been clarified and patient has improved hemodynamically. (3) Pericardial effusion: Code(s): I31.3 - Pericardial effusion (noninflammatory) Status: Acute Assessment and Plan: Chronicity unknown, small effusion anterior without significant change since presentation on the following day. Yet, now patient is relatively more hypotensive and symptomatic. As above, repeat echocardiogram with recommendations to follow. 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 (4) Ischemic cardiomyopathy: Code(s): I25.5 - Ischemic cardiomyopathy Status: Acute Assessment and Plan: Mild, EF 45-50% on most recent echocardiogram. Well compensated no evidence of CHF. (5) CAD in [place] artery: Code(s): I25.10 - Atherosclerotic heart disease of [place] coronary artery without angina pectoris Status: Acute Assessment and Plan: As above. Status post 3.0 x 28 mm drug-eluting stent to mid LAD. Dual antiplatelet therapy, aggressive medical therapy and risk modification. Counseled patient extensively on discharge precautions and restrictions. Called patient's 's Jimbo as requested by the patient explain patient's clinical status, concerns and plan of care. She verbalized understanding and agreed. All questions answered to her satisfaction. Explained plan to monitor pericardial effusion and repeat echocardiogram along with changes in his medications. Reassured her patient must be deemed safe prior to discharge. Further recommendations to follow. 42 minutes spent in the care of this patient including bedside care, chart review, and family discussion. 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 Patient was successfully treated with PCI including PTCA and drug-eluting stent to the target lesion with good angiographic result. He is in the ICU overnight is asymptomatic this morning and feels well. Vital signs stable, systolic and diastolic blood pressure are moderately elevated. Troponin rise to just under 20 Patient feels fine at rest with feels very dizzy, weak and lightheaded with sitting upright and or standing. Patient orthostatic with systolic blood pressure dropping to the 70s with standing. Denies chest pain or shortness of breath. Feels nauseous with eating which then abates but appetite is rather poor. D
--- NOTE | 2020-12-28 14:51 | PCPTNOTE ---
Attempted PT eval. Pt having ECHO done. Will try again tomorrow.
--- NOTE | 2020-12-28 21:16 | PC.NURSE ---
Patient requests to only take 25mg Metoprolol rather than the ordered 50mg due to symptoms this am and orthostatic blood pressures.
[2020-12-29] VITALS (15 sets, daily range): BP systolic 93–133; BP diastolic 70–85; PULSE 77–111; RESP 12–22; TEMP 36.4–36.9; O2SAT 97–100
--- NOTE | 2020-12-29 00:54 | PC.NURSE ---
Quietly resting, no signs of discomfort. Will assess at 0400.
[2020-12-29] MEDS: ASPIRIN 81 MG ENTERIC TABLET PO (09:05)
[2020-12-29] MEDS: ATORVASTATIN 40 MG TABLET 80 MG PO (09:05)
[2020-12-29] MEDS: METOPROLOL TARTRATE 50 MG TAB PO (09:06)
[2020-12-29] MEDS: LOSARTAN POTASSIUM 25 MG TABLET PO (09:06)
[2020-12-29] MEDS: TICAGRELOR 90 MG TABLET PO ×2 (09:07→20:36)
--- NOTE | 2020-12-29 11:43 | PM.PNCARD ---
Progress Note: A&P Additional Plan 60-year-old man with: Acute myocardial infarction with mid occlusion of the LAD treated with PCI with drug-eluting stent by Dr. Veloz. Residual left ventricular ejection fraction is still normal. Problem currently providing discharges symptomatic hypotension. Spironolactone was stopped yesterday losartan reduced patient is still on a relatively high dose of metoprolol. I am going to stop the losartan altogether since his ejection fraction is normal and reduce his metoprolol to 25 mg daily starting tomorrow. Asked him to drink extra fluid today hopefully he can be discharged tomorrow as I would expect his blood pressure to run a little bit higher by that time. 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 Patient was successfully treated with PCI including PTCA and drug-eluting stent to the target lesion with good angiographic result. He is in the ICU overnight is asymptomatic this morning and feels well. Vital signs stable, systolic and diastolic blood pressure are moderately elevated. Troponin rise to just under 20 12/29/2020: Patient is comfortable with no complaints in bed. Upon sitting or standing he is still lightheaded and appears to be symptomatic leak hypotensive. Blood pressure is better than yesterday but under 90 mmHg when standing. No ischemic symptoms otherwise feels fine. Because of the lightheadedness on standing he is not comfortable being discharged. Exam Narrative: Exam Narrative: PHYSICAL EXAMINATION: GENERAL: Alert, oriented, no acute distress MENTAL STATUS: affect appropriate to mood EYES: Extraocular movements intact, no pallor EARS: External ears appear normal, hearing grossly normal NOSE: Normal and patent, no discharge MOUTH: Mucous membranes moist, tongue normal NECK: Supple, no JVD CHEST: Good respiratory effort, clear to auscultation HEART: Normal rate, regular rhythm, normal S1 and S2, S4 gallop ABDOMEN: Soft, nontender NEUROLOGICAL: Alert, oriented, normal speech, no gross motor deficits MUSCULOSKELETAL: No major deformity, no amputation EXTREMITIES: No pedal edema, no clubbing, no cyanosis SKIN: no rash on the exposed area, no cyanosis PSYCHIATRIC: Normal mood, appropriate affect Const: General: comfortable and no acute distress HENMT: Mouth: Yes moist mucous membranes Eyes: Sclera: sclerae normal Pupils: Equal, round and reactive pupils present Neck: Neck: supple and no JVD Resp: Effort & Inspection: normal respiratory effort Auscultation: clear to auscultation bilaterally Cardio: Rate: regular rate Rhythm: regular rhythm GI: Auscultation: normal bowel sounds Skin: General skin exam: normal color Neuro: Cranial nerves: Yes Equal, round and reactive pupils present Cognition (Neuro): normal cognition Extrem: General: normal to inspection Objective Data Vital Signs Vital Signs: Vital Signs - 24 hr 12/28/20 12:00 12/28/20 12:02 12/28/20 12:04 Temperature 36.7 C Pulse Rate 89 Respiratory Rate 19 Blood Pressure 98/74 L 96/70 L 78/65 L Pulse Oximetry 96 12/28/20 14:00 12/28/20 16:00 12/28/20 18:00 Temperature Pulse Rate 100 98 96 Respiratory Rate 15 Blood Pressure 98/69 L Pulse Oximetry 99 12/28/20 20:00 12/28/20 21:13 12/28/20 22:00 Temperature 36.5 C Pulse Rate 109 H 108 H 87 Respiratory Rate 18 Blood Pressure 111/80 Pulse Oximetry 97 12/29/20 00:00 12/29/20 02:00 12/29/20 03:41 Temperature 36.5 C Pulse Rate 90 92 92 Respiratory Rate 20 17 Blood Pressure 113/82 Pulse Oximetry 97 12/29/20 03:42 12/29/20 04:00 12/29/20 06:00 Temperature Pulse Rate 92 93 87 Respiratory Rate 17 Blood Pressure Pulse Oximetry 97 12/29/20 08:00 02
[2020-12-30] VITALS (8 sets, daily range): BP systolic 105; BP diastolic 77; PULSE 92–110; RESP 17–21; TEMP 36.6; O2SAT 97
[2020-12-30] MEDS: ASPIRIN 81 MG ENTERIC TABLET PO (08:25)
[2020-12-30] MEDS: TICAGRELOR 90 MG TABLET PO (08:25)
[2020-12-30] MEDS: ATORVASTATIN 40 MG TABLET 80 MG PO (08:26)
[2020-12-30] MEDS: METOPROLOL SUCCINATE EXT REL 25 MG TABCR PO (08:26)
--- NOTE | 2020-12-30 11:01 | PM.DS ---
DS: Admitting Diagnosis Admitting Diagnosis Admitting Diagnosis: NSTEMI, Mid LAD acute total occlusion, s/p PCi with one SHAYY Synergy 3.0 * 28 mm SHAYY Mild pericardial effusion Hypothyroidism HTN Dyslipidemia DS: Discharge Diagnosis Discharge Diagnosis (1) NSTEMI (non-ST elevated myocardial infarction): Code(s): I21.4 - Non-ST elevation (NSTEMI) myocardial infarction Status: Acute Assessment and Plan: NSTEMI, Mid LAD acute total occlusion, s/p PCi with one SHAYY Synergy 3.0 * 28 mm SHAYY Mild pericardial effusion Hypothyroidism HTN Dyslipidemia DS: Summary Hospital Course Reason for hospitalization: NSTEMI Hospital Course: Patient admitted to hospital with acute chest pain and elevated trop, found to have acute LAD occlusion in cath and had PCI with one SHAYY Synergy 2.5 * 28 mm SHAYY. Post operative course with uncomplicated except for episode of dizziness on standing that resolved today. Dose of B-reyna and ARB was reduced. He is ambulant today with no symptoms. He understand discharge instructions. Time Spent with Patient Time attestation: Total time spent providing and/or coordinating discharge services: 35 minutes Time spent: Greater than 30 minutes Exam Const: General: comfortable and no acute distress Other: Able to lie flat HENMT: General nose exam: Normal nares present and no epistaxis Mouth: Yes moist mucous membranes Eyes: Sclera: sclerae normal Pupils: Equal, round and reactive pupils present Neck: Neck: supple and no JVD Carotids: no bruits Resp: Auscultation: clear to auscultation bilaterally and lung sounds not diminished Other: No chest wall tenderness Cardio: Rate: regular rate Rhythm: regular rhythm Heart sounds: no gallops, no murmurs and no rubs GI: GI Palp: Yes Soft to palpation and No Tenderness to palpation present (GI) Auscultation: normal bowel sounds Skin: General skin exam: normal color, rashes and/or lesions noted and no erythema Other: Warm Neuro: Cranial nerves: Yes Equal, round and reactive pupils present Speech: normal speech Other: No obvious focal deficit or facial asymmetry Extrem: General: no edema Other: Normal capillary refills Intact distal pulses. DS: Data Additional Comments Additional comments: TTE: EF 50%, small pericardial effusion with no tamponade Discharge Plan Discharge Attending physician on discharge: Noel Price Consulting providers: Morena Alvarado Discharging Clinician: Noel Price Anticipated Discharge Date/Time: 12/30/20 10:58 Patient Disposition: Home, Self-Care Activity: as tolerated Diet: heart healthy Discharge Instructions: Take medications as prescribed Call hospital or visit ER for recurrent chest pain or SOB or syncope Watch for right groin swelling or pain and call office or hospital or visit ER Stand Alone Forms: General Discharge Information, Work/School Release IP Follow-up/Referrals: Gunner Veloz MD [Physician] - Discharge Medications: New metoprolol succinate [Toprol XL] 25 mg Tablet Extended Release 24 Hr 25 mg PO QAM Qty: 30 RF: 3 Brilinta 90 mg Tablet 90 mg PO Q12HR Qty: 60 RF: 3 Continued Prolensa 0.07 % drops 1 drop EACH EYE DAILY RF: 0 Lotemax 0.5 % drops,gel 1 drop EACH EYE QID RF: 0 levothyroxine 75 mcg tablet 75 mcg PO DAILY RF: 0 alprazolam 0.5 mg tablet 0.5 mg PO TID RF: 0 albuterol sulfate [Ventolin HFA] 90 mcg/actuation HFA aerosol inhaler 1 inhalation INHALATION Q4H RF: 0 atorvastatin 80 mg tablet 80 mg PO DAILY Qty: 30 RF: 3 aspirin [Aspirin Low Dose] 81 mg tablet,delayed release (DR/EC) 81 mg PO DAILY Qty: 30 RF: 3 spironolactone 25 mg tablet 25 mg PO DAILY Qty: 30 RF: 3 ticagrelor 90 mg tablet 90 mg PO Q12H Qty: 60 RF: 3 Changed losartan 50 mg tablet 25 mg PO DAILY Qty: 30 RF: 11 Discontinued atorvastatin 10 mg tablet 10 mg PO DAILY RF: 0 metoprolol tar
== END 2020-12-30 13:03 | disposition home or self-care (01) | DRG 247 ==
LOC: ANHED 03:13 → ANHICU 04:58 → ANHIMU 01-01 14:49
PROVIDERS: Internal Medicine; Admitting Provider Internal Medicine Cardiovascular Disease; Emergency Provider Emergency Medicine; PCP Family Medicine; Visit Provider Internal Medicine Interventional Cardiology
PROC: 4A023N7 Measurement of Cardiac Sampling and Pressure, Left Heart, Percutaneous Approach (ICD-10-PCS; CPT 93452; principal; 2020-12-26 08:00)
PROC: 027034Z Dilation of Coronary Artery, One Artery with Drug-eluting Intraluminal Device, Percutaneous Approach (ICD-10-PCS; 2020-12-26 08:00)
PROC: 027034Z Dilation of Coronary Artery, One Artery with Drug-eluting Intraluminal Device, Percutaneous Approach (ICD-10-PCS; 2020-12-26 08:00)
DX: I21.4 Non-ST elevation (NSTEMI) myocardial infarction (principal); I31.3 Pericardial effusion (noninflammatory); I25.10 Atherosclerotic heart disease of native coronary artery without angina pectoris; I10 Essential (primary) hypertension; E03.9 Hypothyroidism, unspecified; E78.5 Hyperlipidemia, unspecified; I95.9 Hypotension, unspecified; I25.5 Ischemic cardiomyopathy
CPT/HCPCS: 36415; 71045; 80048; 80061; 83735; 84100; 84484; 85025; 85610; 85730; 93005; 93306; 93308; 93458; 96361; 96365; 96366; 96368; 96375; 97110; 97161; 97165; 99285; A9270; C1725; C1760; C1769; C1874; C1887; C1894; C9600; G0269; G0378; J0330; J0583; J1644; J2250; J2270; J2405; J2550; J3010; J7030; J7040; J7050; Q9957

== ENCOUNTER → 2021-11-03 01:37 | Outpatient (CLI) | payer OTHER, SELFPAY ==
[2021-11-03 12:27] LABS: Influenza Control Positive
[2021-11-03 20:10] LABS: SARS-CoV-2 RNA PCR Negative
== END ==
PROVIDERS: PCP Family Medicine; Visit Provider Nurse Practitioner Family
DX: R05.9 Cough, unspecified (principal); R06.02 Shortness of breath; R53.83 Other fatigue; Z20.822 Contact with and (suspected) exposure to COVID-19
CPT/HCPCS: 87804; C9803; U0003; U0005

== ENCOUNTER 2022-06-18 08:18 | Outpatient (RCR) | payer OTHER, SELFPAY ==
[2022-06-18] MEDS: ACETAMINOPHEN 325 MG TABLET 650 MG PO (09:05)
[2022-06-18] MEDS: FAMOTIDINE 20 MG TABLET PO (09:06)
[2022-06-18] MEDS: diphenhydrAMINE HCl CAP 25 MG CAPSULE PO (09:06)
[2022-06-18 09:07] VITALS: BP 117/75; PULSE 101; RESP 20; TEMP 36.4; O2SAT 98
[2022-06-18] MEDS: BEBTELOVIMAB 175 MG/2 ML VIAL IV PUSH (09:24)
[2022-06-18 10:16] VITALS: BP 131/82; PULSE 89; RESP 18; O2SAT 97
== END 2022-06-18 16:00 ==
LOC: AMCINF 08:18
PROVIDERS: PCP Family Medicine; Referring Provider Family Medicine; Visit Provider Internal Medicine Hematology & Oncology
DX: U07.1 COVID-19 (principal); I10 Essential (primary) hypertension; I25.10 Atherosclerotic heart disease of native coronary artery without angina pectoris
CPT/HCPCS: A9270; M0222; Q0222

== ENCOUNTER 2023-04-25 01:19 | Day surgery (SDC) | payer OTHER, SELFPAY ==
[2023-04-07 10:15] VITALS: BMI 31.1
--- NOTE | 2023-04-24 17:41 | PM.HPGS ---
History of Present Illness History of Present Illness Consent: Risks, benefits, and alternatives have been discussed and questions answered. Patient agrees to proceed with procedure. Chief complaint: neoplasm screening Narrative: Hiro Pinzon is a 62 year old male referred for colon cancer screening Review of Systems Review of Systems: All systems reviewed & are unremarkable except as noted in HPI and below PMFSH Past Medical History Medical History BMI 30.0-30.9,adult BMI 31.0-31.9,adult CAD in [place] artery Cataract Cataract Chronic anxiety Chronic low back pain with left-sided sciatica Colon cancer screening normal colonoscopy at age 52 with recheck in 10 years. Cough COVID-19 (06/15/22) fully vaccinated, tested positive 06/17/2022. Encounter for prostate cancer screening PSA 0.55 on 11/02/2021. PSA 0.65 on 10/28/2022. Essential (primary) hypertension Fatigue Gastro-esophageal reflux disease without esophagitis Hyperlipidemia Hyperlipidemia Hypothyroidism, unspecified TSH 4.01, free T4 1.2, total T3 146 on 11/02/2021 TSH elevated at 7.49 with free T4 normal at 1.1 and T3 total 142 on 10/28/2022. Male erectile dysfunction, unspecified Mild intermittent asthma in adult without complication Mixed hyperlipidemia total cholesterol 135, triglycerides 99, HDL 38, LDL 79 on 11/02/2021. Total cholesterol 136, HDL low at 34, triglycerides 109, LDL 81 with goal less than 70 with AST 19 and ALT 21 with atorvastatin 80 mg daily. Nausea Obesity (BMI 30.0-34.9) Seasonal allergic rhinitis Shortness of breath Vertiginous migraine Vitamin B12 deficiency anemia level low at 308 on 11/02/2021. Normal at 1149 with hemoglobin 15.7 on 10/28/2022. Vitamin D insufficiency level low at 22 With goal greater than 30 on 10/28/2022. Family History Family History (System 12/28/20 @ 09:28 by Carlene Wyatt) Father Hypertension Alzheimer's dementia Mother Hypertension Mother Asthma Family history of migraine headaches, Onset Age: 85 Family history of allergic disorder, Onset Age: 85 Father Family history of Alzheimer's disease Social History Social History Smoking status: Never smoker Second hand tobacco smoke exposure: No Alcohol intake: never Substance use: never Substance use type: does not use Lack of Transportation: No Lack of Food: Never True Current Housing: I Have Housing Concerned About Future Housing: No Difficulty Paying Gas/Electric Bills: No Difficulty Paying for Meds: No Currently Unemployed: No Education: Bachelor's Degree Difficulty w/ Childcare or Family Care: No Living arrangements: with family Gender identity (if verbalized by the patient): Male Spiritual care concerns: No Meds Home Medications and Allergies Home Medications Medication Instructions Recorded Confirmed Type albuterol sulfate 90 mcg/actuation 1 inhalation inhalation Q4H 10/22/19 04/07/23 History aerosol inhaler (Ventolin HFA) aspirin 81 mg tablet,delayed 81 mg PO QAM 30 days #30 tabs 12/30/20 04/07/23 Rx release metoprolol succinate 25 mg 25 mg PO QAM #30 tabs 12/30/20 04/07/23 Rx tablet,extended release 24 hr (Toprol XL) cyanocobalamin (vitamin B-12) 1,000 mcg PO DAILY 01/25/21 04/07/23 History 1,000 mcg tablet atorvastatin 80 mg tablet 80 mg PO DAILY 06/13/21 04/07/23 History cholecalciferol (vitamin D3) 25 2,000 unit PO DAILY 11/04/22 04/07/23 History mcg (1,000 unit) tablet ezetimibe 10 mg tablet (Zetia) 10 mg PO DAILY #90 tabs 11/04/22 04/07/23 Rx levothyroxine 50 mcg tablet 50 mcg PO . q.a.m. #90 tabs 11/04/22 04/07/23 Rx alprazolam 0.5 mg tablet 0.5 mg PO BID PRN anxiety #60 tabs 01/29/23 04/07/23 Rx Allergies Allergy/AdvReac Type Severity Reaction Status Date / Time azithromycin AdvReac Vomiting Verified 04/07/23 10:16 ENV
[2023-04-25 06:43] VITALS: BP 105/80; PULSE 85; RESP 18; TEMP 36.3; O2SAT 98; BMI 30.7
[2023-04-25] MEDS: LACTATED RINGERS 1,000 ML 150 ML IV CONT (06:55)
--- NOTE | 2023-04-25 07:42 | WPDANESEPPF ---
Anes - Initial Pre Proc Eval Procedure: Operation Date: 04/25/23 08:00 Proposed Procedures p Colonoscopy - German Childs MD Date/Time: 04/25/23 07:42 Surgeon: German Childs MD Pre Op Diagnosis: neoplasm screening Patient Data Age: 62 Gender: M Height: 1.88 m Weight: 108.6 kg Last Vital Signs Temp 97.4 F L 04/25/23 06:43 Pulse 85 04/25/23 06:43 Resp 18 04/25/23 06:43 BP 105/80 04/25/23 06:43 Pulse Ox 98 04/25/23 06:43 O2 Del Method Room Air 04/25/23 06:43 Allergies Allergy/AdvReac Type Severity Reaction Status Date / Time azithromycin AdvReac Vomiting Verified 04/07/23 10:16 ENVIRONMENTAL ALLERGENS AdvReac Other Uncoded 04/07/23 10:16 SEASONAL ALLERGENS AdvReac Other Uncoded 04/07/23 10:16 Home Medications Medication Instructions Recorded Confirmed Type albuterol sulfate 90 mcg/actuation 1 inhalation inhalation Q4H 10/22/19 04/07/23 History aerosol inhaler (Ventolin HFA) aspirin 81 mg tablet,delayed 81 mg PO QAM 30 days #30 tabs 12/30/20 04/07/23 Rx release metoprolol succinate 25 mg 25 mg PO QAM #30 tabs 12/30/20 04/07/23 Rx tablet,extended release 24 hr (Toprol XL) cyanocobalamin (vitamin B-12) 1,000 mcg PO DAILY 01/25/21 04/07/23 History 1,000 mcg tablet atorvastatin 80 mg tablet 80 mg PO DAILY 06/13/21 04/07/23 History cholecalciferol (vitamin D3) 25 2,000 unit PO DAILY 11/04/22 04/07/23 History mcg (1,000 unit) tablet ezetimibe 10 mg tablet (Zetia) 10 mg PO DAILY #90 tabs 11/04/22 04/07/23 Rx levothyroxine 50 mcg tablet 50 mcg PO . q.a.m. #90 tabs 11/04/22 04/07/23 Rx alprazolam 0.5 mg tablet 0.5 mg PO BID PRN anxiety #60 tabs 01/29/23 04/07/23 Rx Patient hx anesthesia problems: none Family hx anesthesia problems: none Results Review: All pre-operative results and documents have been reviewed as part of the pre-operative evaluation. [facility]LY [facility] Past Medical History Medical History (Updated 11/04/22 @ 16:11 by Paul Mccormick MD) BMI 30.0-30.9,adult BMI 31.0-31.9,adult CAD in [place] artery Cataract Cataract Chronic anxiety Chronic low back pain with left-sided sciatica Colon cancer screening normal colonoscopy at age 52 with recheck in 10 years. Cough COVID-19 (06/15/22) fully vaccinated, tested positive 06/17/2022. Encounter for prostate cancer screening PSA 0.55 on 11/02/2021. PSA 0.65 on 10/28/2022. Essential (primary) hypertension Fatigue Gastro-esophageal reflux disease without esophagitis Hyperlipidemia Hyperlipidemia Hypothyroidism, unspecified TSH 4.01, free T4 1.2, total T3 146 on 11/02/2021 TSH elevated at 7.49 with free T4 normal at 1.1 and T3 total 142 on 10/28/2022. Male erectile dysfunction, unspecified Mild intermittent asthma in adult without complication Mixed hyperlipidemia total cholesterol 135, triglycerides 99, HDL 38, LDL 79 on 11/02/2021. Total cholesterol 136, HDL low at 34, triglycerides 109, LDL 81 with goal less than 70 with AST 19 and ALT 21 with atorvastatin 80 mg daily. Nausea Obesity (BMI 30.0-34.9) Seasonal allergic rhinitis Shortness of breath Vertiginous migraine Vitamin B12 deficiency anemia level low at 308 on 11/02/2021. Normal at 1149 with hemoglobin 15.7 on 10/28/2022. Vitamin D insufficiency level low at 22 With goal greater than 30 on 10/28/2022. Family History Family History (System 12/28/20 @ 09:28 by Carlene Wyatt) Father Hypertension Alzheimer's dementia Mother Hypertension Mother Asthma Family history of migraine headaches, Onset Age: 85 Family history of allergic disorder, Onset Age: 85 Father Family history of Alzheimer's disease Social History Social History (Updated 11/04/22 @ 15:11 by Latoya Gonzalez MA) Smoking status: Never smoker Second hand tobacco smoke exposure: No Alcohol intake: never Substance use: never Substance use type: does not use Lack of Transportation: No Lack of Food: Never True Current Juan David
[2023-04-25 08:16] VITALS: BP 97/71; PULSE 82; RESP 18; O2SAT 97
[2023-04-25 08:26] VITALS: BP 105/66; PULSE 74; RESP 18; O2SAT 96
[2023-04-25 08:36] VITALS: BP 106/75; PULSE 71; RESP 18; O2SAT 94
== END 2023-04-25 08:45 | disposition home or self-care (01) ==
PROVIDERS: PCP Family Medicine; Visit Provider Internal Medicine Gastroenterology
PROC: 0DJD8ZZ Inspection of Lower Intestinal Tract, Via Natural or Artificial Opening Endoscopic (ICD-10-PCS; CPT 45378; principal; 2023-04-25 08:00)
DX: Z12.11 Encounter for screening for malignant neoplasm of colon (principal); K57.30 Diverticulosis of large intestine without perforation or abscess without bleeding; K64.8 Other hemorrhoids; I25.10 Atherosclerotic heart disease of native coronary artery without angina pectoris; I10 Essential (primary) hypertension; K21.9 Gastro-esophageal reflux disease without esophagitis; E03.9 Hypothyroidism, unspecified; J45.20 Mild intermittent asthma, uncomplicated; E78.2 Mixed hyperlipidemia; D51.3 Other dietary vitamin B12 deficiency anemia; E55.9 Vitamin D deficiency, unspecified; F41.9 Anxiety disorder, unspecified; Z79.51 Long term (current) use of inhaled steroids; E66.9 Obesity, unspecified; Z68.30 Body mass index [BMI] 30.0-30.9, adult
CPT/HCPCS: 45378; J2704; J7120

== ENCOUNTER 2025-06-24 14:30 | Outpatient (RCR) | payer OTHER, SELFPAY ==
--- NOTE | 2025-03-30 13:20 | PTOPEVAL1 ---
Assessment and note entered by Rashid Eugene Evaluation Information Assessment Status Evaluation ICD-10 Condition Codes (PT) Pain in low back M54.50,Radiculopathy, lumbar region M54.16 Onset 12/31/24 Subjective Information Pt. reports that initial symptoms were a small area of numbness described along the lateral left thigh. He reports that he in past 3 months symptoms have began to worsen. He reports that pain in the left l.e. and numbness were becoming more constant. He states that pain used to be only noticed with standing long periods and now is there constantly. He states that he had recent course of steroids, which has helped to relieve his pain. He was also prescribed a nerve pain which has helped with sleep. He reports that despite his pain he continues to complete all work related duties and household duties. He reports that he is slower and more cautious due to pain. He has trouble sitting at his desk due to pain increases. he reports that he used to walk for exercise, but cannot walk too far currently due to left leg pain. he reports that his goal is to reduce his pain. Reported Pain Level Pain Score 1,3: Self Report Assessment PT Clinical Summary Pt. is a 64 year old male who enters the clinic with low back pain. He presents with impaired postural awareness, impaired trunk mobility, impaired l.e. strength, impaired flexibility and functional decline. Continued skilled PT is indicated in order to improve these areas to allow the pt. to be able to complete all IADL's with improved comfort and efficiency. Plan of Care Interventions Electrical Stimulation,Hot Pack/Cold Pack,Manual Therapy,Neuro Re-education,Patient/Caregiver Education,Therapeutic Activities,Therapeutic Exercise PT Services Indicated Yes Treatment Frequency and 2x/week x 10 visits Duration These treatments will address the objective and functional deficits as defined above. The patient will be advanced safely and appropriately in order for the patient to progress towards his/her prior level of function. Additional exercises will be introduced and as well as a comprehensive home exercise program upon discharge, if needed, ?to ensure carryover of functional gains achieved in the clinic. This treatment plan has been reviewed and agreement upon by the patient.
--- NOTE | 2025-03-30 13:20 | OPREHPOC ---
Outpatient Therapy Plan of Care This is a Multidisciplinary Plan of Care that may contain components documented by all disciplines (PT, OT, and ST.) PT Problem 1 PT Problem #1 Knowledge Deficit PT Goal 1 Goal / Goal Update Pt. will be independent with a HEP focused on trunk mobility and core strength. Target Visit 2 PT Problem 2 PT Problem #2 Pain PT Goal 1 Goal / Goal Update Pt. will report being able to stand for duration of 30-60 minutes with 2/10 pain at worst at the left leg. Target Visit 10 PT Problem 3 PT Problem #3 Impaired Strength PT Goal 1 Goal / Goal Update Pt. will present with 4+/5 gross left l.e. strength Target Visit 10 PT Problem 4 PT Problem #4 Impaired Functional Mobility PT Goal 1 Goal / Goal Update Pt. will present with less than 10% limitation on the Oswestry indicating significant functional improvement. Pt. will demonstrate ability to complete floor to waist lifts without pain increase and safe body mechanics with 10-15# object. Target Visit 10 PT Problem 5 PT Problem #5 Impaired Flexibility PT Goal 1 Goal / Goal Update Pt. will present with 10 degree improvement in bilateral hamstring flexibility to assist with improved postural awareness. Target Visit 5
--- NOTE | 2025-04-29 14:52 | OPREHPOC ---
Outpatient Therapy Plan of Care This is a Multidisciplinary Plan of Care that may contain components documented by all disciplines (PT, OT, and ST.) PT Problem 1 PT Problem #1 Knowledge Deficit PT Goal 1 Goal / Goal Update Pt. will be independent with a HEP focused on trunk mobility and core strength. Target Visit 2 Progress Met PT Problem 2 PT Problem #2 Pain PT Goal 1 Goal / Goal Update Pt. will report being able to stand for duration of 30-60 minutes with 2/10 pain at worst at the left leg. Target Visit 10 Progress Not Met PT Problem 3 PT Problem #3 Impaired Strength PT Goal 1 Goal / Goal Update Pt. will present with 4+/5 gross left l.e. strength Target Visit 10 Progress Partially Met PT Problem 4 PT Problem #4 Impaired Functional Mobility PT Goal 1 Goal / Goal Update Pt. will present with less than 10% limitation on the Oswestry indicating significant functional improvement. Pt. will demonstrate ability to complete floor to waist lifts without pain increase and safe body mechanics with 10-15# object. Target Visit 18 Progress Not Met PT Problem 5 PT Problem #5 Impaired Flexibility PT Goal 1 Goal / Goal Update Pt. will present with 10 degree improvement in bilateral hamstring flexibility to assist with improved postural awareness. Target Visit 18 Progress Partially Met
--- NOTE | 2025-04-29 14:52 | PTOPPROG ---
Assessment and note entered by Shawn Guzman, PT Evaluation Information Assessment Status Progress ICD-10 Condition Codes (PT) Pain in low back M54.50,Radiculopathy, lumbar region M54.16 Onset 12/31/24 Subjective Information Reports that compared to first day, pain is generally better. Most days around 1-2 with pain and has some instances where he does not notice any issues. Prior to therapy he was feeling the numbness all the time. No change in sleeping quality outside of medication. He has had a couple of pain episodes in the middle of the night. Night pain is a burning sensation. No pain into the foot unless he has been standing for a long time. Assessment PT Clinical Summary Patient has seen progress in hamstring mobility and strength of hips and core. Patient continues to have fluctuating pain limiting sleeping and comfort with ADLs. Will continue to benefit from skilled therapy to address subjective and objective deficits. Plan of Care Interventions Electrical Stimulation,Hot Pack/Cold Pack,Manual Therapy,Neuro Re-education,Patient/Caregiver Education,Therapeutic Activities,Therapeutic Exercise PT Services Indicated Yes Treatment Frequency and 2x/week x 10 visits Duration These treatments will address the objective and functional deficits as defined above. The patient will be advanced safely and appropriately in order for the patient to progress towards his/her prior level of function. Additional exercises will be introduced and as well as a comprehensive home exercise program upon discharge, if needed, ?to ensure carryover of functional gains achieved in the clinic. This treatment plan has been reviewed and agreement upon by the patient.
--- NOTE | 2025-05-26 15:10 | PTOPPROG ---
Assessment and note entered by Atif Hogan PT Evaluation Information Assessment Status Progress ICD-10 Condition Codes (PT) Pain in low back M54.50,Radiculopathy, lumbar region M54.16 Onset 12/31/24 Subjective Information Pt reports he believes 50% since he began physical therapy. Pt states he notes improvements in his sleep and ability to manage symptoms. Pt notes continued difficulty with prolonged standing, sitting and walking. Pt notes he feels he could not get by without therapy when in a flare up. Assessment PT Clinical Summary Patient's low back and RLE anterior thigh pain has improved overall as evidenced by advancements in symptoms, mobility, strength, and overall functional use of the extremity. However, some limitations are still present. With the biggest limitation being prolonged standing and walking sending radicular symptoms to the anterior thigh. Pt was educated on ability to manage symptoms. Pt requires additional manual therapy and cues during flare ups making therapy services necessary. Patient would benefit from continued skilled physical therapy services to address the above listed impairments and facilitate a return to their prior level of function. Plan of Care Interventions Electrical Stimulation,Hot Pack/Cold Pack, Mechanical Traction,Neuro Re-education,Therapeutic Activities,Therapeutic Exercise,Other PT Services Indicated Yes Treatment Frequency and 2x week 8 visits Duration These treatments will address the objective and functional deficits as defined above. The patient will be advanced safely and appropriately in order for the patient to progress towards his/her prior level of function. Additional exercises will be introduced and as well as a comprehensive home exercise program upon discharge, if needed, ?to ensure carryover of functional gains achieved in the clinic. This treatment plan has been reviewed and agreement upon by the patient.
--- NOTE | 2025-06-24 15:18 | PTOPDC ---
Assessment and note entered by Atif Hogan PT Evaluation Information Assessment Status Discharge ICD-10 Condition Codes (PT) Pain in low back M54.50,Radiculopathy, lumbar region M54.16 Onset 12/31/24 Subjective Information Pt reports he believes 75% overall. Pt states the pain levels are low and manageable. Pt states he still gets pain after yardwork but he is able to take rest and stretch to reduce symptoms. Reported Pain Level Pain Score 0: Self Report Assessment PT Clinical Summary Patient's condition has improved overall as evidenced by advancements in symptoms, mobility, strength, and overall functional use of the extremity. Patient has met therapy goals. Patient to discharge from physical therapy this date and continue with updated home exercise program as instructed. Patient to contact physical therapist or primary care provider if questions or concerns arise. Plan of Care PT Services Indicated No
== END 2025-06-27 07:58 | disposition home or self-care (01) ==
LOC: ANHGOSHPT 14:30
PROVIDERS: PCP Family Medicine; Visit Provider Family Medicine
DX: M54.42 Lumbago with sciatica, left side (principal); G89.29 Other chronic pain
CPT/HCPCS: 97110; 97112; 97140; 97161; 97530